=== PATIENT | female | born 1955 | race Caucasian/White ===

== ENCOUNTER → 2017-09-30 22:33 | Outpatient (CLI) | payer BC | END | disposition home or self-care (01) | LOC: D.MAMMO 10:45 | DX: Z12.31 Encounter for screening mammogram for malignant neoplasm of breast (principal) ==

== ENCOUNTER 2020-08-16 05:32 | Day surgery (SDC) | payer BC ==
[~2020-08-16] VITALS: Ht 165.1 cm; Wt 85.7 kg
[~2020-08-16 05:32] MED LIST: BIOFLEX TABLET1 EACH PO; EFFEXOR XR75 MG PO; ERGOCALCIF50000 UNIT PO; FISH OIL 1,0001 CA1 PO; PROMETRIUM200 MG PO; SYSTANE NIGHTT3.5 GM EACH EYE; VITAMIN B12 SL; XALATAN 0.0052.5 ML EACH EYE; ZETIA10 MG PO
[2020-08-16 05:50] LABS: BASOPHILS 0.6 % (0-2); EOSINOPHILS 2.7 % (0-7); HEMATOCRIT 43.1 % (36.0-48.0); HEMOGLOBIN 14.5 g/dL (12-16); IMMATURE GRANULOCYTES 0.3 % (0-5); LYMPHOCYTE ABS# 2.03 10x3/uL (1.18-3.74); LYMPHOCYTES 32.3 % (15-50); MCH 30.9 pg (26.0-34.0); MCHC 33.6 g/dL (31.0-37.0); MCV 91.7 fL (80.0-100.0); MEAN PLATELET VOLUME 9.4 fL (7.4-10.4); MONOCYTES 7.5 % (2-11); NEUTROPHIL ABS# 3.55 10x3/uL (1.56-6.13); NEUTROPHILS 56.6 % (40-80); PLATELET COUNT 268 10x3/uL (130-400); RDW 12.7 % (11.5-14.5); WBC 6.3 10x3/uL (4.8-10.8)
[2020-08-16 06:02] LABS: ANION GAP 8.2 mmol/L (8-16); CALCIUM 9.6 mg/dL (8.5-10.1); CARBON DIOXIDE 29.5 mmol/L (21.0-32.0); CREATININE - SERUM 0.9 mg/dL (0.6-1.3); POTASSIUM - SERUM 3.7 mmol/L (3.5-5.1)
[2020-08-16 06:44] VITALS: BP 115/72; Ht 165.1 cm; Wt 85.7 kg
[2020-08-16] MEDS ORDERED: HYDROCODON-ACE1 EA10 PO (08:44)
--- NOTE | 2020-08-16 10:02 | NUR ---
1000 NO DRAINAGE FROM ABD. INCISIONS, ICE PACK APPLIED, INSTRUCTIONS GIVEN TO PT. AND PT'S SPOUSE.
--- NOTE | 2020-08-18 14:09 | OP ---
PATIENT NAME: DORETHA LINDSAY MEDICAL RECORD: [id number] :57 LOCATION:D.OPS ADMISSION DATE: SURGEON: KAIN HOWARD MD DATE OF OPERATION: 08/16/2020 PREOPERATIVE DIAGNOSES: 1. Gallstones. 2. Hypercholesterolemia. POSTOPERATIVE DIAGNOSES: 1. Gallstones. 2. Hypercholesterolemia. PROCEDURE: Laparoscopic cholecystectomy. SURGEON: Kain Howard MD REPORT OF PROCEDURE: The patient's abdomen was prepped and draped in sterile fashion. A cutdown was made on the superior aspect of the umbilicus. 0 Vicryls were placed in the fascia bilaterally and the fascia was incised with a 15-blade. I then bluntly entered the peritoneal cavity and placed a 12-mm Dena port. Under direct visualization, a 5-mm trocar was placed in the epigastrium and 2 more 5-mm trocars were placed in the right subcostal region. The gallbladder was grasped and elevated. The gallbladder had no signs of any inflammatory changes. The cystic artery and cystic duct were dissected free. These were clipped proximally and distally and then ligated in standard fashion. The gallbladder was taken off the liver bed using electrocautery and placed into the right upper quadrant. Any bleeding from the liver bed was then treated with electrocautery. The ports and insufflation were then removed and the gallbladder was taken out through the umbilicus. The umbilical fascia was closed with interrupted 0 Vicryls times 3. The wounds were then irrigated out with normal saline and infused with 10 mL of 0.25% Marcaine with epinephrine. The skin incisions were all closed with subcutaneous 5-0 Monocryl and dressed appropriately. COMPLICATIONS: None. CONDITION: Stable. ANESTHESIA: General endotracheal and local. BLOOD LOSS: Minimal. TRANSINT:[id number] Voice Confirmation ID: [id number] DOCUMENT ID: [id number] KAIN HOWARD MD at 1409 CC: EMELIA STORM [id number] DICTATION DATE: 08/16/20 0848 PLANT OPERATIONS COORDINATOR: 08/16/20 1422 [facility] [place] 08/16/20 [place] [id number]
== END 2020-08-16 10:55 | disposition home or self-care (01) ==
LOC: D.OPS 05:32
PROVIDERS: ATTEND Surgery
DX: K80.20 Calculus of gallbladder without cholecystitis without obstruction (principal); E78.00 Pure hypercholesterolemia, unspecified